=== PATIENT | female | born 1960 ===

== ENCOUNTER 2016-07-10 06:05 | Day surgery (SDC) | payer MEDICARE ==
[2016-07-10 06:40] VITALS: BMI 27.4
[2016-07-10] MEDS ORDERED: Propofol 10 mg/ml Inj (20 ML) ONE (08:15)
[2016-07-10] MEDS ORDERED: Lactated Ringer's 500 ML IV ONE (08:15)
--- NOTE | 2016-07-10 08:17 | CP.SDSHP ---
Same Day Surgery H & P - History Proposed Procedure: colonoscopy Pre-Op Diagnosis: screening for colon neoplasia - Previous Medical/Surgical History Cardiac: Hypertension, Other (hypercholesterolemia, gerd) Neuro: Backaches, Other (L/S disc disease) Previous Surgical History: . T and A. Herniated L/S spine - Allergies Allergies: Allergies No Known Allergies Allergy (Verified 01/19/15 08:23) - Physical Exam Vital Signs: Vital Signs 07/10/16 06:49 Temperature 97.8 F Pulse Rate 65 Respiratory 16 Rate Blood Pressure 133/80 O2 Sat by Pulse 99 Oximetry Mental Status: Alert & Oriented x3 Neuro: WNL Heart: WNL Lungs: WNL GI: WNL - Impression Impression: Screening for colon neoplasia Pt. Evaluated Today:Candidate for Anesthesia & Procedure: Yes - Date & Time Date: 07/10/16 Time: :17 Short Stay Discharge - Short Stay Discharge Admitting Diagnosis/Reason for Visit: ENCOUNTER FOR SCREENING FOR MALIGNANT NEOPLASM OF Disposition: HOME/ ROUTINE
[2016-07-10 09:51] VITALS: TEMP 98
[2016-07-10 09:54] VITALS: BP 134/79; PULSE 59; RESP 14; O2SAT 98
== END 2016-07-10 09:54 | disposition home or self-care (01) ==
LOC: C.ENDO 06:05
PROVIDERS: ATTEND Internal Medicine Gastroenterology
DX: Z12.11 Encounter for screening for malignant neoplasm of colon (principal); D12.7 Benign neoplasm of rectosigmoid junction; K64.8 Other hemorrhoids
CPT/HCPCS: 45380; 88305; J2704; J7120

== ENCOUNTER 2016-11-14 07:05 | Day surgery (SDC) | payer MEDICARE | END 2016-11-14 10:50 | disposition home or self-care (01) | LOC: C.ENDO 07:05 | CPT/HCPCS: 43239; 88305; J2704; J3010 ==